=== PATIENT | male | born 1965 | race Caucasian/White ===

== ENCOUNTER 2021-08-21 14:35 | Inpatient (IN) ==
[2021-08-21 19:05] LABS: Influenza A PCR Negative (Negative); Influenza B PCR Negative (Negative); Resp. Syncytial Virus PCR Negative (Negative)
[2021-08-21 19:06] LABS: SARS-CoV-2 by PCR (In House) Negative (Negative)
[2021-08-21] MEDS ORDERED: hydrOXYzine pamoate 25 MG CAPSULE PO PRN (19:48)
[2021-08-21] MEDS ORDERED: *HR* LORazepam 1 MG TABLET PO PRN (19:48)
[2021-08-21] MEDS ORDERED: traZODone 50 MG TABLET PO PRN (19:48)
[2021-08-21] MEDS ORDERED: haloperidoL 5 MG TABLET PO PRN (19:48)
[2021-08-21] MEDS ORDERED: Haloperidol Lactate 5 MG/ML VIAL IM PRN (19:48)
[2021-08-21] MEDS ORDERED: *HR* LORazepam 2 MG/ML VIAL IM PRN (19:48)
[2021-08-21] MEDS ORDERED: Acetaminophen 325 MG TABLET PO PRN (19:48)
[2021-08-21] MEDS: Divalproex (24 HR) 500 MG TABLET PO SCH (22:38)
[2021-08-21] MEDS: Gabapentin 300 MG CAPSULE PO SCH (22:38)
[2021-08-21] MEDS: *HR* Metformin 500 MG TABLET PO SCH (22:41)
[2021-08-21] MEDS: Carbidopa/Levodopa 25/100 TABLET PO SCH (23:19)
[2021-08-22] MEDS: ARIPiprazole 10 MG TABLET PO SCH (08:19)
[2021-08-22] MEDS: Carbidopa/Levodopa 25/100 TABLET PO SCH ×2 (08:19→21:00)
[2021-08-22] MEDS: *HR* SitaGLIPtin 100 MG TABLET PO SCH (08:20)
[2021-08-22] MEDS: Primidone 50 MG TABLET PO SCH (08:20)
[2021-08-22] MEDS: *HR* Metformin 500 MG TABLET PO SCH ×2 (08:20→16:53)
[2021-08-22] MEDS: Cholecalciferol (D-3) 1,000 UNIT (25MCG) TABLET PO SCH (08:20)
[2021-08-22] MEDS: *HR* GlipiZIDE XL (24 HR) 10 MG TABLET PO SCH (08:21)
[2021-08-22] MEDS: Isosorbide MONOnitrate (24 HR) 30 MG TAB.ER.24H PO SCH (08:21)
[2021-08-22 11:37] LABS: Estimated Average Glucose 177 mg/dl; Hemoglobin A1C 7.8 %
[2021-08-22] MEDS: Gabapentin 300 MG CAPSULE PO SCH (21:00)
[2021-08-22] MEDS: Ibuprofen 400 MG TABLET PO PRN (21:00)
[2021-08-22] MEDS: Divalproex (24 HR) 500 MG TABLET PO SCH (21:00)
[2021-08-23] MEDS: ARIPiprazole 10 MG TABLET PO SCH (09:03)
[2021-08-23] MEDS: Carbidopa/Levodopa 25/100 TABLET PO SCH ×2 (09:04→20:44)
[2021-08-23] MEDS: *HR* Metformin 500 MG TABLET PO SCH ×2 (09:04→16:45)
[2021-08-23] MEDS: Isosorbide MONOnitrate (24 HR) 30 MG TAB.ER.24H PO SCH (09:04)
[2021-08-23] MEDS: *HR* GlipiZIDE XL (24 HR) 10 MG TABLET PO SCH (09:04)
[2021-08-23] MEDS: Primidone 50 MG TABLET PO SCH ×2 (09:05→09:45)
[2021-08-23] MEDS: *HR* SitaGLIPtin 100 MG TABLET PO SCH (09:05)
[2021-08-23] MEDS: Cholecalciferol (D-3) 1,000 UNIT (25MCG) TABLET PO SCH (09:05)
[2021-08-23] MEDS: Gabapentin 300 MG CAPSULE PO SCH ×2 (16:45→20:43)
[2021-08-23] MEDS: valACYclovir 500 MG TABLET PO SCH ×2 (16:47→21:04)
[2021-08-23] MEDS: Ibuprofen 400 MG TABLET PO PRN (20:44)
[2021-08-23] MEDS: Divalproex (24 HR) 500 MG TABLET PO SCH (20:44)
[2021-08-24] MEDS: Gabapentin 300 MG CAPSULE PO SCH ×3 (08:24→20:27)
[2021-08-24] MEDS: ARIPiprazole 10 MG TABLET PO SCH (08:24)
[2021-08-24] MEDS: valACYclovir 500 MG TABLET PO SCH ×3 (08:25→20:26)
[2021-08-24] MEDS: Isosorbide MONOnitrate (24 HR) 30 MG TAB.ER.24H PO SCH (08:25)
[2021-08-24] MEDS: *HR* Metformin 500 MG TABLET PO SCH ×2 (08:25→16:23)
[2021-08-24] MEDS: *HR* GlipiZIDE XL (24 HR) 10 MG TABLET PO SCH (08:25)
[2021-08-24] MEDS: Cholecalciferol (D-3) 1,000 UNIT (25MCG) TABLET PO SCH (08:26)
[2021-08-24] MEDS: *HR* SitaGLIPtin 100 MG TABLET PO SCH (08:26)
[2021-08-24] MEDS: Carbidopa/Levodopa 25/100 TABLET PO SCH ×2 (08:26→20:27)
[2021-08-24] MEDS: Primidone 50 MG TABLET PO SCH (08:26)
[2021-08-24] MEDS: Divalproex (24 HR) 500 MG TABLET PO SCH (20:26)
[2021-08-25] MEDS: *HR* SitaGLIPtin 100 MG TABLET PO SCH (08:25)
[2021-08-25] MEDS: Isosorbide MONOnitrate (24 HR) 30 MG TAB.ER.24H PO SCH (08:25)
[2021-08-25] MEDS: valACYclovir 500 MG TABLET PO SCH (08:26)
[2021-08-25] MEDS: *HR* GlipiZIDE XL (24 HR) 10 MG TABLET PO SCH (08:26)
[2021-08-25] MEDS: Gabapentin 300 MG CAPSULE PO SCH (08:26)
[2021-08-25] MEDS: *HR* Metformin 500 MG TABLET PO SCH (08:26)
[2021-08-25] MEDS: Carbidopa/Levodopa 25/100 TABLET PO SCH (08:26)
[2021-08-25] MEDS: Cholecalciferol (D-3) 1,000 UNIT (25MCG) TABLET PO SCH (08:26)
[2021-08-25] MEDS: Primidone 50 MG TABLET PO SCH (08:26)
[2021-08-25] MEDS: ARIPiprazole 10 MG TABLET PO SCH (08:26)
[2021-08-25 09:56] VITALS: BP 111/74; PULSE 75; TEMP 97.8; O2SAT 95
[2021-08-26] MEDS ORDERED: (Dulaglutide [Trulicity] 1.5 MG/0.5 ML Pen.Injctr) SQ SCH (19:50)
== END 2021-08-25 11:35 | disposition home or self-care (01) | DRG 753 ==
LOC: EMEROOARM 14:35 → 1ANU 19:58
PROVIDERS: ADMIT Psychiatry & Neurology Psychiatry; ATTEND Psychiatry & Neurology Psychiatry